=== PATIENT | male | born 1955 | race Caucasian/White ===

== ENCOUNTER → 2019-07-11 13:32 | Outpatient (CLI) | payer OTHER, SELFPAY ==
--- NOTE | 2019-07-11 09:00 | MASS_PTH ---
PATIENT: KEKE TRIPLETT LOC: [facility] U#:[id number] AGE/SX: 70/M ROOM: RE07/11/[address]: Dr. Archie Doll MD : [id number] BED: DIS: SPEC #: [id number] RECD: 07/11/19 11:32 STATUS: RUPERTO JUSTIN #: [id number] SHIMA: 07/11/19 09:[address]: Archie Doll DEPT: SURGICAL PATHOLOGY RECD BY: Jerome Gaitan ENTERED: 07/11/19 13:42 SP TYPE: Mass OTHR DR: Dr. Fausto Garcia MD Tissues: Abdomen, NOS Procedures: Surgery Specimen Level III HEADER OPERATION: Excision right abdomen mass PRE-OP DIAGNOSIS: Right abdomen mass TISSUE SUBMITTED: Right abdomen tissue MICROSCOPIC DIAGNOSIS Right abdominal tissue, biopsy: Mature adipose tissue consistent with lipoma. SJ:rao 07/12/19 MICROSCOPIC DESCRIPTION Slides are reviewed. GROSS DESCRIPTION Received in fixative is one container labeled with the patient's name and designated right abdomen. The specimen consists of a piece of adipose tissue with needle localization measuring 2.5 x 2 x 0.5 cm. The specimen is bisected and submitted entirely in one cassette. / SJ:rao 07/11/19 TC:5 CPT: 37273
[2019-07-11 09:11] VITALS: BMI 28.0
== END ==
PROVIDERS: Family Provider Family Medicine; PCP Family Medicine; Visit Provider Surgery
DX: R19.00 Intra-abdominal and pelvic swelling, mass and lump, unspecified site (principal)
CPT/HCPCS: 88304; 88305

== ENCOUNTER → 2019-09-20 09:35 | Outpatient (CLI) | payer OTHER, SELFPAY ==
[2019-09-20 09:18] VITALS: BMI 28.0
--- NOTE | 2019-09-20 09:35 | RAD_ITS ---
STUDY: X-RAY - RIGHT ANKLE REASON FOR EXAM: Male, 64 years old. Fall on ice 3 days ago. Lateral pain. TECHNIQUE: view(s) of the ankle. COMPARISON: None. FINDINGS: Normal visualized distal tibia and fibula. Separate ossification center for the lateral malleolus. Normal tibiotalar articulation and ankle mortise. Os trigonum, a normal variant. Normal visualized talus and calcaneus. The visualized subtalar, talonavicular, calcaneocuboid and tarsal articulations are normal. Lateral soft tissue swelling. RAD/Ankle min 3 Views IMPRESSION: Lateral soft tissue swelling with no acute osseous abnormality. Electronically Signed: Fausto Valdez MD at 10:19 EST , Service support ,
== END ==
PROVIDERS: Family Provider Family Medicine; PCP Family Medicine; Referring Provider Physician Assistant; Visit Provider Physician Assistant
DX: S99.911A Unspecified injury of right ankle, initial encounter (principal)
CPT/HCPCS: 73610

== ENCOUNTER 2019-11-13 09:00 | Outpatient (RCR) | payer OTHER, SELFPAY ==
[2019-09-20 09:56] VITALS: BMI 28.0
--- NOTE | 2019-11-19 07:23 | HP.PTEVAL_ITS ---
Patient's Visit Information KEKE TRIPLETT is a 64 year old M referred to Physical Therapy by Fausto Ferris MD with a diagnosis of R ankle pain. Date of Evaluation: 10/30/19 Physical Therapist: Sherman Canales DPT - Visit Plan Frequency: 1x/Week Duration: 4-6 Weeks Plan: Start with ankle stability exercises, eccentric EVR with bands, DFM to post tib tendon and US to same region. - Subjective Findings: Pt. is here today for his initial evaluation with diagnosis of R ankle sprain/pain. Pt. reprots a few weeks ago, slipping and falling on ice and his spouse falling on top of hip. Pt. reports overall is doing better, but is worried about running as this still causes him pain an swelling. 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 Pt. denies NT, negative homans sign. Pt. reports increased pain with walking prolonged distances and running. No pain at rest and house hold distances cause no pain. Pt. has tried ice and heat, no success. Pt. has worn a light neoprene brace with mild success. Pt. reports pain at lateral aspect of pain. Pt. is hopeful to reduce symptoms in order to get back to all recreational activities without limiations. - Pain R ankle Pain Intensity (Out of 10): 2 Pain Intensity Range: 1, 5 - Objective POSTURE: Pt. has normal posture in stance. No off loading noted. PALPATION: Pt. is tender at lateral maleolus and Post tib tendon, slight pain at CF ligament as well. NEURO: normal intact. ROM: Pt. has good ROM except R ankle INV causes lateral ankle pain and active EVR causes pain in similar region. MMT: 5/5 throughout, except DF 5-/5, EVR 5-/5 with increased pain with both movements. GAIT: Pt. has fairly normal gait pattern without reports of increased pain. ST AIRS: mild increase in symptoms with descending. - Goals Goal 1:: LTG: Pt. to be I with HEP. Goal Time Frame: 4-6 Weeks Goal 2:: STG: pt. to have no pain with walking community level distances. Goal Time Frame: 2 Weeks Goal 3:: LTG: Pt. to run unlimited distances without increase in edema or pain. Goal Time Frame: 4-6 Weeks Goal 4:: LTG: Pt. to have 5/5 strength throughout R ankle. Goal Time Frame: 2-4 Weeks Goal 5:: LTG: Pt. to complete referreing lacross game without increase in symptoms. Goal Time Frame: 4-6 Weeks - Rehabilitation Potential Physical Therapy Diagnosis: Pt. has signs and symptoms consistent with Post tib tendonitis. Pt. has some pain at CF ligament as well. No signs of tears noted. Pt. would benefit from PT to increase pain free ROM, promote increase lateral ankle strength and stability allowing for increased ease withrunning and recreational activities. Rehabilitation Potential: Excellent - Anticipated Interventions Patient/Client Instruction: Educate patient on: Condition, Plan of Care, Risk Factors, Benefits of Fitness Program For the Purpose of:: To improve decision making, To facilitate caregiver knowledge, To improve self management, To prevent re-injury, To improve ability to perform tasks related to life management, To improve tolerance to ADL's Therapeutic Exercise to Include: Strength training, Power training, Endurance training, Balance training, Postural training, Flexibilty training, Gait and locomotor training, Passive ROM, Active ROM For the Purpose of:: To decrease pain, To decrease swelling/inflammation, To increase ROM, To improve nutrient delivery to tissue, To increase oxygenation perfusion, To improve muscle performance and motor function, To improve gait and locomotor functions, To improve health of tissue, To decrease soft tissue restriction, To increase flexibility/ROM, To improve endurance, To improve balance Manual Therapy Techniques to Include: Other Comment: deep friction massage For the Purpose of:: To decrease pain, To decrease swelling/inflammation Ultrasound (thermal/non thermal): Yes For the Purpose of:: To decrease pain, To decrease swelling/inflammation Thank you for the opportunity to evaluate your patient. For Medicare and Medicare HMO plans, please review the plan of care and approve it. It will need to be FAXED BACK to us at [phone] for Medicare purposes. For Medicare only, by signing this I certify the plan of care. Please let me know if there are questions or concerns regarding this plan of care. Physician Signature: Date:___
--- NOTE | 2019-11-19 07:30 | HP.PTREVAL ---
Fausto Ferris MD, It has been my pleasure to treat KEKE TRIPLETT over the last 3 visits for R ankle pain. Please see the progress note below for an update on the physical therapy plan of care! 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 Pt. reports being 95% better overall. Pt. is HEP compliant. Objective/Function: Pt. to continue with exercises on own. Pt. is doing well. Pt. to trial on own for 2 weeks. Follow up with PT if needed. If I do not hear from him 1 month I will DC. Plan Plan: Start with ankle stability exercises, eccentric EVR with bands, DFM to post tib tendon and US to same region. Goals Goal 1:: LTG: Pt. to be I with HEP. Goal Time Frame: 4-6 Weeks Goal 2:: STG: pt. to have no pain with walking community level distances. Goal Time Frame: 2 Weeks Goal 3:: LTG: Pt. to run unlimited distances without increase in edema or pain. Goal Time Frame: 4-6 Weeks Goal 4:: LTG: Pt. to have 5/5 strength throughout R ankle. Goal Time Frame: 2-4 Weeks Goal 5:: LTG: Pt. to complete referreing lacross game without increase in symptoms. Goal Time Frame: 4-6 Weeks Anticipated Interventions Patient/Client Instruction: Educate patient on: Condition, Plan of Care, Risk Factors, Benefits of Fitness Program For the Purpose of:: To improve decision making, To facilitate caregiver knowledge, To improve self management, To prevent re-injury, To improve ability to perform tasks related to life management, To improve tolerance to ADL's Therapeutic Exercise to Include: Strength training, Power training, Endurance training, Balance training, Postural training, Flexibilty training, Gait and locomotor training, Passive ROM, Active ROM For the Purpose of:: To decrease pain, To decrease swelling/inflammation, To increase ROM, To improve nutrient delivery to tissue, To increase oxygenation perfusion, To improve muscle performance and motor function, To improve gait and locomotor functions, To improve health of tissue, To decrease soft tissue restriction, To increase flexibility/ROM, To improve endurance, To improve balance Manual Therapy Techniques to Include: Other Comment: deep friction massage For the Purpose of:: To decrease pain, To decrease swelling/inflammation Ultrasound (thermal/non thermal): Yes For the Purpose of:: To decrease pain, To decrease swelling/inflammation Please do not hesitate to contact me at [phone] by phone or if you have questions or concerns regarding this new plan of care! Sincerely, LAI BanuelosT
--- NOTE | 2020-04-24 07:10 | HP.PT.NRP ---
KEKE TRIPLETT was seen in my office for initial evaluation on 10/30/19. The following Plan of Care was established for this patient: Initial Frequency: 1x/Week Initial Duration: 4-6 Weeks Patient/Client Instruction: Educate patient on: Condition, Plan of Care, Risk Factors, Benefits of Fitness Program For the Purpose of:: To improve decision making, To facilitate caregiver knowledge, To improve self management, To prevent re-injury, To improve ability to perform tasks related to life management, To improve tolerance to ADL's Therapeutic Exercise to Include: Strength training, Power training, Endurance training, Balance training, Postural training, Flexibilty training, Gait and locomotor training, Passive ROM, Active ROM For the Purpose of:: To decrease pain, To decrease swelling/inflammation, To increase ROM, To improve nutrient delivery to tissue, To increase oxygenation perfusion, To improve muscle performance and motor function, To improve gait and locomotor functions, To improve health of tissue, To decrease soft tissue restriction, To increase flexibility/ROM, To improve endurance, To improve balance Manual Therapy Techniques to Include: Other Comment: deep friction massage For the Purpose of:: To decrease pain, To decrease swelling/inflammation Ultrasound (thermal/non thermal): Yes For the Purpose of:: To decrease pain, To decrease swelling/inflammation This patient was last seen in our office 11/13/19. Pertinent comments regarding their Physical therapy will appear below: Pt. was seen for his bridget sprain. Pt. was doing very well at our last appointment. Pt. has not been seen in several months and will be DC from PT at this point in time. At this point I will be discontinuing this patient from physical therapy. I would be happy to see this patient again in the future if found appropriate by the physician. Thank you! Sherman Canales, LAIT
== END 2019-11-13 19:00 | disposition home or self-care (01) ==
LOC: PT 09:00
PROVIDERS: PCP Family Medicine; Referring Provider Family Medicine; Visit Provider Family Medicine
DX: M25.571 Pain in right ankle and joints of right foot (principal)
CPT/HCPCS: 97035; 97110; 97161

== ENCOUNTER → 2020-02-26 13:59 | Outpatient (CLI) | payer OTHER, SELFPAY ==
[2020-02-26 13:56] VITALS: BMI 28.0
--- NOTE | 2020-02-26 14:00 | RAD_ITS ---
STUDY: X-RAY - RIGHT SHOULDER REASON FOR EXAM: Chronic shoulder pain. TECHNIQUE: 3 view(s) of the shoulder. COMPARISON: None. FINDINGS: Normal glenohumeral articulation. There is acromioclavicular arthrosis. Normal acromion. Normal humeral head and visualized proximal humerus. The soft tissue structures are unremarkable. Normal visualized pulmonary apex. RAD/Shoulder min 2 Views IMPRESSION: Acromioclavicular arthrosis. Electronically Signed: Marvin Romero MD at 15:02 EDT Tel , Service support ,
== END ==
PROVIDERS: PCP Family Medicine; Referring Provider Orthopaedic Surgery; Visit Provider Orthopaedic Surgery
DX: M25.511 Pain in right shoulder (principal)
CPT/HCPCS: 73030

== ENCOUNTER → 2020-03-06 10:20 | Outpatient (CLI) | payer OTHER, SELFPAY ==
[2020-02-26 13:56] VITALS: BMI 28.0
--- NOTE | 2020-03-06 10:21 | MRI_ITS ---
STUDY: MRI RIGHT SHOULDER REASON FOR EXAM: Right shoulder pain and loss of strength for 6 months. TECHNIQUE: Standardized fat and water weighted pulse sequences were obtained in all 3 orthogonal planes. COMPARISON: Radiographs 02/26/2020. FINDINGS: There is a small high-grade partial thickness tear of the articular surface of the distal anterior supraspinatus tendon at the greater tuberosity insertion (T2 coronal image 16) measuring 0.2 cm in length with delamination (T2 coronal images 11-15, 17). Normal infraspinatus tendon. Normal subscapularis tendon. Normal teres minor tendon. Normal supraspinatus muscle. Normal infraspinatus muscle. Normal subscapularis muscle. There is atrophy with partial fat replacement of the teres minor muscle (T2 sagittal image 13). Normal glenohumeral articulation. There are small foci of bone edema in the greater tuberosity and medial humeral head. Normal biceps labral complex. Normal intracapsular long biceps tendon. Normal labrum. Normal capsulo- ligamentous complex. There is acromioclavicular arthrosis with mild hypertrophic changes effacing the subacromial fat (T2 sagittal images 17, 18). There is a Type II morphology (curved), with a neutral orientation. There is a very small volume of subacromial-subdeltoid bursal fluid (T2 coronal images 12-14). Normal visualized coracohumeral and coracoacromial ligaments. Normal deltoid muscle. Normal trapezius muscle. MRI/Upper Ext Joint Only(Routine) IMPRESSION: Small partial-thickness tear of the supraspinatus tendon with delamination. Atrophy of the teres minor muscle. Acromioclavicular arthrosis. Very mild subacromial-subdeltoid bursitis. Electronically Signed: Marvin Romero MD at 11:48 EDT Tel , Service support ,
== END ==
PROVIDERS: PCP Family Medicine; Referring Provider Orthopaedic Surgery; Visit Provider Orthopaedic Surgery
DX: S46.011A Strain of muscle(s) and tendon(s) of the rotator cuff of right shoulder, initial encounter (principal); M19.011 Primary osteoarthritis, right shoulder
CPT/HCPCS: 73221

== ENCOUNTER 2020-06-25 06:02 | Day surgery (SDC) | payer OTHER, SELFPAY ==
[2020-05-06 13:03] VITALS: BMI 28.0
--- NOTE | 2020-05-28 09:43 | EKG12_ITS ---
Test Reason : PRE OP Blood Pressure : / mmHG Vent. Rate : 072 BPM Atrial Rate : 072 BPM P-R Int : 134 ms QRS Dur : 080 ms QT Int : 374 ms P-R-T Axes : 041 001 026 degrees QTc Int : 409 ms Normal sinus rhythm Normal ECG Confirmed by MAURICIO SOUSA, DARIUS ([id number]), assistant film editor BRENDAN FENG ([id number]) on 05/30/2020 1:30:06 PM Referred By: Donna Contreras Confirmed By:MARSHALL MARTÍNEZ MD
[2020-05-28 10:25] LABS: Hematocrit 47.6 % (40-54); Hemoglobin 15.9 g/dL (13.0-16.5); Mean Corp Hgb Conc 33.4 g/dL (32-36); Mean Corpuscular Hgb 31.1 pg (27.0-32.0); Mean Platelet Vol. 9.2 fl (6.2-12.0); Platelet Count 316 K/mm3 (150-450); RBC Distribution Width CV 13.2 % (11.6-14.6); RBC Distribution Width SD 44.7 fl (35.1-43.9); Red Blood Count 5.12 M/mm3 (4.6-6.2); White Blood Count 7.1 K/mm3 (4.4-11.0)
--- NOTE | 2020-06-04 07:10 | HP_ITS ---
I have re-examined the patient. There are no clinical changes since date of exam. Intake Intake Visit Reasons: RIGHT SHOULDER Chief Complaint: right shoulder Accompanied by: self Is patient in pain?: Yes Allergies No Known Allergies Allergy (Verified 09/20/19 09:19) Medications pantoprazole 40 mg tablet,delayed release PO 02/26/20 [History Confirmed 05/06/20] PFSH Social History (Updated 05/06/20 @ 15:[address] Donna Contreras DO) Smoking Status: Never smoker alcohol intake: never substance use type: does not use HPI RIGHT SHOULDER: Surgical H&P: Yes Details: Parts of this documentation were recorded by a scribe, this documentation accurately reflects the service provided and the decisions made by me, Dr. Donna Contreras DO 05/06/20 1300. KEKE TRIPLETT is a 64 year old M here today for f/u rt shoulder. Patient states that he is here to sign a surgery consent form. Patient continues to have pain and difficulty with normal activities and desired activities like golfing. Denies numbness, tingling or other associated symptoms. He continues to have achiness over his anterior lateral arm. ROS Musc Reports as per HPI, Reports joint pain Skin/Breast Reports as per HPI Neuro Yes as per HPI Ortho Exam Right Shoulder Skin/Wound: No ecchymosis, No erythema, No swelling Testing: Positive Hawkin's, Neer's, Speed's, TTP Biceps, AROM-Forward Elevation 0-180, AROM-External Rotation at 90 0-60 and AROM-External Rotation at side 0- 60; negative Apprehension Test or Sulcus Sign Assessment & Plan Problems 1. Traumatic incomplete tear of right rotator cuff, subsequent encounter S46.011D 2. Biceps tendonitis on right M75.21 3. Subacromial impingement of right shoulder M75.41 4. Bursitis of right shoulder M75.51 Plan Patient educated that since he continues to have pain and the injections have become less effective then he can proceed with surgery. Patient wishes to proceed with surgery on 06/04/2020. Reviewed the pre-operative plans with the patient. Risks and benefits of the procedure were fully explained, including but not limited to infection, neurovascular injury, continued pain, arthritis, stiffness, need for further surgery, re-injury, DVT, PE, general risks of anesthesia, and loss of limb or life. The patient understands all the risks and does wish to proceed with written consent for right shoulder arthroscopy RTC repair, biceps tenotomy vs tenodesis, subacromial decompression, acromioplasty, repair as indicated. Patient prefers to have the tenodesis along with the RTC repair. Follow up 5 days post op or sooner if pain, swelling, numbness or associated symptoms, or concerns develop. All questions answered. Patient in agreement of plan. We discussed the current risk associated COVID-19. While it is understood that there is a community spread of COVID 19 the risk of nicole COVID-19 while at [facility] is very low, however, the risk cannot be completely mitigated because of the community spread of the disease. We discussed in detail the risk of exposure to and or potential harm posed by the COVID-19 virus with having a surgery/procedure at this time versus the risk of delaying the surgery/procedure. Is not possible to know either the risk of delaying the surgery procedure or chance of getting an infection with perfect accuracy, but a joint decision was made to proceed at this time with a schedule surgery/procedure as indicated on the consent form. Patient was notified that we will need to comply with any screening or testing [facility] wishes to perform or that surgery may be delayed for any positive results. Coding Level of Care Code Off vis,est,level 4 Diagnoses Traumatic incomplete tear of right rotator cuff, subsequent encounter S46.011D ??Encounter type: subsequent encounter ??Rotator cuff tear extent: incomplete ??Rotator cuff tear trauma status: traumatic Biceps tendonitis on right M75.21 Subacromial impingement of right shoulder M75.41 Bursitis of right shoulder M75.51 COVID (Procedure Consent) Procedure Criteria Procedure Criteria: Yes Elective The surgeon/proceduralist and patient have discussed in detail the risk of exposure to and/or potential harm posed by the COVID-19 virus with having a surgery/procedure at this time versus the risk of? delaying the surgery/procedure. It is not possible to know either the risk of delaying the surgery or procedure or chance of getting an infection with perfect accuracy, but a joint decision was made between the patient and the surgeon/proceduralist ?to proceed at this time with the scheduled surgery/procedure as indicated on the consent form.
[2020-06-17 13:10] VITALS: BMI 28.0
[2020-06-25] VITALS (7 sets, daily range): BP systolic 104–141; BP diastolic 64–80; PULSE 67–87; RESP 16; TEMP 36–36.5; O2SAT 92–94; BMI 27.6
[2020-06-25] MEDS: Lactated Ringers 1,000 ML 100 ML IV ×2 (06:34→09:01)
--- NOTE | 2020-06-25 07:13 | PCM.DC.ORTHO ---
Discharge Diet: No Restrictions - may remove sling to range shoulder, do not actively range elbow, remove bandages and apply bandaids to incision sites after pod5, may get incision wet after pod 5 , follow up in 5 days, call with concerns Discharge Activity: May Not Drive May shower in (days): 1 Ice area for (Minutes): 20 - Every hour while awake. Weight Bearing Status: Weight bearing as tolerated Keep extremity elevated above heart level: Operative Extremity Call your doctor if your incision/area has: Continuous Slow Oozing, Sudden Increased Bleeding, Increased Pain/ Swelling, Increased Redness, Foul Smelling Discharge Call your doctor if you observe: Fever of 101 or Higher, Coldness, Increased Pain, Numbness or Tingling, Change in Color, Calf discomfort Allergies/Adverse Reactions: Allergies No Known Allergies Allergy (Verified 06/17/20 13:06) Medications to take at Discharge pantoprazole 40 mg tablet,delayed release 40 mg PO DAILY 02/26/20 Fexofenadine HCl [Irena Allergy] 60 mg PO DAILY 05/27/20 meloxicam 15 mg tablet 15 mg PO DAILY #30 tab 06/04/20 Hydrocodone Bitart/Apap 5-325 [Cameron 5MG-325MG] 1 - 2 tab PO Q6H PRN PRN 5 Days #40 tab 06/25/20 Zolpidem Tartrate [Ambien (Generic)] 5 mg PO QHS PRN PRN #14 tab 06/25/20 The following prescriptions were given: Zolpidem Tartrate [Ambien (Generic)] 5 mg PO QHS PRN PRN #14 tab PRN Reason: Insomnia Transmission Status: Received by [facility] Hydrocodone Bitart/Apap 5-325 [Cameron 5MG-325MG] 1 - 2 tab PO Q6H PRN PRN 5 Days #40 tab PRN Reason: Pain Transmission Status: Received by [facility] Primary Care Physician: Fausto Ferris MD [Primary Care Provider] - Test Results: Test results from this visit will be discussed in further detail at your follow-up appointment, if applicable. Please Follow Up With: Donna Contreras, DO - [phone]
--- NOTE | 2020-06-25 07:13 | PCM.OPRPT ---
Report of Operation Date of Procedure: 06/25/20 Pre-Operative Diagnosis: right shoulder rc delamination, labral fraying, biceps slap tear and tendinosis, impingment syndrome, Post-Operative Diagnosis: same Surgery/Procedure Performed:: right shoulder arthroscopy, labral and rc debridement, subacromial decompression/acromioplasty, open biceps subpec tenodesis conservation policy analyst: Rudolph Bateman Type of Anesthesia:: General/Regional Anesthesiologist: Gunnar Ugalde Estimated Blood Loss (mL): min Fluids Replaced: 900cc lr Description of Procedure: Preop note Patient is a 65-year-old male who is had continued right anterior shoulder and posterior shoulder pain. Patient failed conservative treatment including injections patient MRI shows a delamination tear of his rotator cuff with intact footprint and labral fraying as well as biceps tendinosis. On physical exam patient is tender along his biceps tendon he has positive impingement syndrome. Risk benefits alternative surgery discussed with patient. Risk including but not limited to blood loss, blood clot, infection, neurovascular, failure procedure, loss of life and loss of limb. Patient aware like proceed with right shoulder arthroscopy repair as indicated. Operative note Patient seen and examined preoperative holding area. Right shoulder was marked. Patient brought to the operating placed supine on the operating table. Signed, anesthesia, antibiotics were administered. Patient was placed in beachchair positioning with bony prominences well-padded and SCDs placed on his bilateral lower extremity. Replacement beachchair and penitentiary through we did recheck his blood pressure which was stable throughout. We then prepped and draped the right arm in standard usual sterile technique. We marked our bony landmarks as well as our portal placement. We insufflated the glenohumeral joint for the posterior aspect had good return. Timeout was performed. We then created a posterior portal with 11 blade. We will begin our diagnostic arthroscopy. There was significant labral fraying extending from the anterior to the posterior aspect of the biceps labral junction was unstable. He also had some fraying on the undersurface of the articular surface of his rotator cuff however the footprint was intact. We then created anterior portal under direct visualization. We performed a tenotomy of the biceps we then resected back any unstable labral pieces with a shaver. We then also debrided back to the onset stable labrum extending superiorly and posteriorly as well as any loose unstable on rotator cuff on the articular surface. We moved to the subacromial space. Created a lateral portal and direct visualization. Patient had a quite a hyperemic and thickened bursa. This was resected with a combination of shaver and a burner. We performed a very gentle acromioplasty as well with a shaver. We coagulating bleeders that we did find. We then moved to our subacromial subpectoral tenodesis. We reprepped the area and waited the allotted 3 minutes. We marked our incision which was just distal to the pec insertion. We create about a 2 cm incision with a 15 blade dissect down tenotomies to level the biceps tendon the biceps tendon was then removed and truncated to appropriate length as measured based on our tenodesis marking. We then sent the biceps to pathology for further evaluation. We whipstitched the end of the biceps drilled unicortical he placed the button at the end of the whipstitch biceps tendon and then flipped the biceps tendon after drilling after the drilling and and then oversewed the tendon down to the periosteum. We then irrigated the incision with copious amounts of sterile saline. Incision was closed with 2-0 Vicryl running 4-0 Monocryl. The portals were closed with interrupted 4-0 nylon stitches. Sterile dressings were applied. Patient tolerated procedure well no complication transfer recovery room in stable condition. Patient was placed in a postop sling. Postoperative note We will give family pictures in 2 weeks Call with increased pain numbness tingling further issues arise Pharmacy has prescriptions Discussed with family Sapna disclaimer This note was generated with Proven dictation software. It may contain incorrect words, spelling, and punctuation that were not noted in checking the note before signing.
[2020-06-25] MEDS: Cefazolin 2 GM in 0.9% Normal Saline 100 ML IV (07:26)
--- NOTE | 2020-06-25 07:30 | TESH_PTH ---
PATIENT: KEKE TRIPLETT LOC: [facility] [place] U#:[id number] AGE/SX: 65/M ROOM: RE06/25/[address]: Dr. Donna Contreras DO : 1955 BED: DIS: 06/25/2020 SPEC #: [id number] RECD: 06/25/20 10:30 STATUS: RUPERTO JUSTIN #: [id number] SHIMA: 06/25/20 07:[address]: Donna Contreras DEPT: SURGICAL PATHOLOGY RECD BY: Jody Baca ENTERED: 06/25/20 11:06 SP TYPE: TENDON OTHR DR: Dr. Fausto Ferris MD Tissues: Tendon and tendon sheath, NOS Procedures: Surgery Specimen Level III HEADER OPERATION: Right shoulder arthroscopy, RTC repair, SAD/acromioplasty PRE-OP DIAGNOSIS: Traumatic incomplete tear of right rotator cuff; biceps tendonitis on right; subacromial impingement of right shoulder; bursitis of right shoulder TISSUE SUBMITTED: Bicep tendon MICROSCOPIC DIAGNOSIS Right biceps tendon, excision: Reparative and reactive change. AM:rao 06/26/20 MICROSCOPIC DESCRIPTION Slides are reviewed. GROSS DESCRIPTION Received in fixative is one container labeled with the patient's name and designated bicrachael tendon. The specimen consists of an elongated fragment of oneal-white soft tissue measuring 5.5 x 0.9 x 0.5 cm. The specimen is sectioned and totally submitted in one cassette. / AM:rao 06/25/20 TC:5 CPT: 51865
[2020-06-25] MEDS: Epinephrine (1 mg/ml) 1 MG/ML VIAL (07:57)
[2020-06-25] MEDS: Mupirocin Ointment 22gm Tube 1 APPLIC (07:57)
== END 2020-06-25 11:10 | disposition home or self-care (01) ==
LOC: SDC 06:02 → AC 06:03
PROVIDERS: Anesthesiology; PCP Family Medicine; Referring Provider Orthopaedic Surgery; Visit Provider Orthopaedic Surgery
PROC: (CPT 29827; principal; 2020-06-25 07:10)
DX: S46.011D Strain of muscle(s) and tendon(s) of the rotator cuff of right shoulder, subsequent encounter (principal); M75.21 Bicipital tendinitis, right shoulder; M75.41 Impingement syndrome of right shoulder; M75.51 Bursitis of right shoulder; M25.811 Other specified joint disorders, right shoulder
CPT/HCPCS: 01716; 23430; 29822; 29826; 64450; 36415; 85027; 87635; 88304; 93005; C9803; J7120; J2405; U0003

== ENCOUNTER → 2020-07-24 11:03 | Outpatient (CLI) | payer OTHER, SELFPAY ==
[2020-06-25 06:23] VITALS: BMI 27.6
--- NOTE | 2020-07-24 11:04 | MRI_ITS ---
STUDY: MRI LEFT KNEE REASON FOR EXAM: Left knee pain, knee hyperextends at times, history of arthroscopy. TECHNIQUE: Standardized fat and water weighted pulse sequences were obtained in all 3 orthogonal planes. COMPARISON: Radiographs 05/22/2020. FINDINGS: There is a partial medial meniscectomy with a horizontal band of signal in the posterior horn of the medial meniscus extending to the free margin and tracking fluid (T2 sagittal images 6-8) and therefore more consistent with recurrent medial meniscal tear rather than scarring. Normal medial femoral condyle and tibial plateau. Normal medial collateral ligamentous complex (MCL). Normal distal semimembranosus, gracilis and semitendinosus tendons. Normal lateral meniscus. Normal hyaline cartilage of the lateral femorotibial compartment. Normal lateral femoral condyle and tibial plateau. Normal proximal tibiofibular articulation. Normal lateral collateral (fibular) ligament. Normal popliteus tendon. Normal biceps femoris tendon. There is intrasubstance mucoid degeneration/cyst of the anterior cruciate ligament (T2 sagittal images 12, 13) without focal discontinuity of the ligament. Normal posterior cruciate ligament (PCL). Normal congruent patellofemoral articulation. Normal hyaline cartilage of the patellofemoral compartment. Normal medial and lateral patellar retinaculum. Normal visualized quadriceps tendon. Normal patellar tendon. Normal Hoffa''s fat pad. There is a very small joint effusion. The soft tissues are unremarkable. The otherwise visualized osseous structures are unremarkable. MRI/Lower Ext Joint Only (Routine) IMPRESSION: Partial medial meniscectomy with recurrent medial meniscal tear. Mild arthrosis of the medial femorotibial compartment. Intrasubstance mucoid degeneration/cyst in the anterior cruciate ligament. Very small joint effusion. Electronically Signed: Marvin Romero MD at 13:31 EST Tel , Service support ,
== END ==
PROVIDERS: PCP Family Medicine; Referring Provider Orthopaedic Surgery; Visit Provider Orthopaedic Surgery
DX: M17.12 Unilateral primary osteoarthritis, left knee (principal)
CPT/HCPCS: 73721

== ENCOUNTER 2020-08-26 09:00 | Outpatient (RCR) | payer OTHER, SELFPAY ==
[2020-06-25 06:23] VITALS: BMI 27.6
--- NOTE | 2020-07-15 14:01 | HP.PTEVAL ---
Patient's Visit Information KEKE TRIPLETT is a 65 year old M referred to Physical Therapy by Dr. Donna Contreras DO with a diagnosis of R biceps tenodesis w/ SAD. Date of Evaluation: 07/15/20 Physical Therapist: Sherman Canales DPT - Visit Plan Frequency: 1x/Week Duration: 6 Weeks Plan: R shoulder PROM progressing to AAROM over next 2 weeks. R elbow PROM for 6 weeks. Work initially on increasing RUE ROM. R shoulder strengthening beginning 2-3 weeks if s/s allow. - Subjective Pt presents for eval this date 3 weeks s/p R biceps tenodesis. Started to feel numbness in top of arm, was unable to throw a ball d/t pain. Does not currently have any pain, states he took pain medication once nerve block wore off for a day but has been fine since. 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 States that sleeping is getting better each day, is getting used to the sling. Denies having any numbness or tingling. Returns to Dr in 2-3 weeks. - Pain R shoulder Pain Intensity (Out of 10): 0 - Objective POSTURE: Pt presented in R arm sling. PALPATION: Tenderness over ant shoulder. ROM: PROM tested only. Reduced PROM. R shoulder flex 113, abd 101, ER 50, IR 38 deg w/ empty end feels d/t pain. R elbow flex 140, ext 10 deg w/ firm end feels. LUE WNL. MMT: Not tested, PROM only at this time. NEURO: WNL, denies n/t - Goals Goal 1:: LTG: Pt to be I w/ HEP. Goal Time Frame: 4-6 Weeks Goal 2:: STG: Pt will display inc RUE PROM to at least 85% of LUE. Goal Time Frame: 2-4 Weeks Goal 3:: LTG: Pt will display inc RUE PROM equal to LUE. Goal Time Frame: 4-6 Weeks Goal 4:: LTG: Pt will report having 0-2/10 pain at end range of R shoulder movements. Goal Time Frame: 4-6 Weeks Goal 5:: LTG: Pt. to have full AROM of R shoulder without increase in symptoms. Goal Time Frame: 4-6 Weeks Goal 6:: LTG: Pt. to have increased LUE strength to atleast 4+/5 throughout. Goal Time Frame: 6-8 Weeks - Rehabilitation Potential Physical Therapy Diagnosis: S/s consistent w/ s/p R biceps tenodesis. Pt displays dec RUE ROM and strength w/ pain at end range of PROM. PT intervention indicated to address stated deficits and inc RUE ROM, strength, and facilitate a dec in pain at end range. Rehabilitation Potential: Good - Anticipated Interventions Patient/Client Instruction: Educate patient on: Condition, Plan of Care, Risk Factors, Benefits of Fitness Program For the Purpose of:: To foster healthy habits, To improve self management, To prevent re-injury Therapeutic Exercise to Include: Strength training, Power training, Flexibilty training, Passive ROM, Active ROM For the Purpose of:: To increase ROM, To improve muscle performance and motor function, To improve ability to perform ADL's, To increase tolerance to activity/condition/position, To improve ability of physical actions for home/community/work/leisure, To increase flexibility/ROM Manual Therapy Techniques to Include: Passive ROM For the Purpose of:: To increase ROM, To improve ability to perform ADL's, To increase flexibility/ROM TENS: Yes Cryotherapy (ice pack, ice massage): Yes Thermo therapy (hot pack): Yes Ultrasound (thermal/non thermal): Yes Thank you for the opportunity to evaluate your patient. For Medicare and Medicare HMO plans, please review the plan of care and approve it. It will need to be FAXED BACK to us at [phone] for Medicare purposes. For Medicare only, by signing this I certify the plan of care. Please let me know if there are questions or concerns regarding this plan of care. Physician Signature: Date:
--- NOTE | 2020-08-26 10:55 | HP.PTREVAL_ITS ---
Dr. Donna Contreras, DO, It has been my pleasure to treat KEKE TRIPLETT over the last 7 visits for R biceps tenodesis w/ SAD. Please see the progress note below for an update on the physical therapy plan of care! Subjective: Pt. reports 'I am doing great today. He had an injection in his knee and feel like his arm is doing better. Pt. reports no pain currently. Objective/Function: Pt. is doing very well. He has full motion of his shoulder and contiunes to progress strenth he has 4/5 throughout without increase in s ymptoms. Pt. is pleased overall. Plan Plan: Pt. to trial on his own for a few weeks to see if he can manage on his own. Pt. to follow up with Pt if needed. If he is not seen in 4-6 weeks I will DC him back to physician. Goals Goal 1:: LTG: Pt to be I w/ HEP. Goal Time Frame: 4-6 Weeks Goal Progress: Goal Met Goal 2:: STG: Pt will display inc RUE PROM to at least 85% of LUE. Goal Time Frame: 2-4 Weeks Goal Progress: Goal Met Goal 3:: LTG: Pt will display inc RUE PROM equal to LUE. Goal Time Frame: 4-6 Weeks Goal Progress: Goal Met Goal 4:: LTG: Pt will report having 0-2/10 pain at end range of R shoulder movements. Goal Time Frame: 4-6 Weeks Goal Progress: Goal Met Goal 5:: LTG: Pt. to have full AROM of R shoulder without increase in symptoms. Goal Time Frame: 4-6 Weeks Goal Progress: Goal Met Goal 6:: LTG: Pt. to have increased LUE strength to atleast 4+/5 throughout. Goal Time Frame: 6-8 Weeks Goal Progress: Progressing Anticipated Interventions Patient/Client Instruction: Educate patient on: Condition, Plan of Care, Risk Factors, Benefits of Fitness Program For the Purpose of:: To foster healthy habits, To improve self management, To prevent re-injury Therapeutic Exercise to Include: Strength training, Power training, Flexibilty training, Passive ROM, Active ROM For the Purpose of:: To increase ROM, To improve muscle performance and motor function, To improve ability to perform ADL's, To increase tolerance to activity/condition/position, To improve ability of physical actions for home/community/work/leisure, To increase flexibility/ROM Manual Therapy Techniques to Include: Passive ROM For the Purpose of:: To increase ROM, To improve ability to perform ADL's, To increase flexibility/ROM TENS: Yes Cryotherapy (ice pack, ice massage): Yes Thermo therapy (hot pack): Yes Ultrasound (thermal/non thermal): Yes Please do not hesitate to contact me at [phone] by phone or if you have questions or concerns regarding this new plan of care! Sincerely, Sherman Canales, LAIT
== END 2020-08-26 19:00 | disposition home or self-care (01) ==
LOC: PT 09:00
PROVIDERS: PCP Family Medicine; Referring Provider Orthopaedic Surgery; Visit Provider Orthopaedic Surgery
DX: Z98.890 Other specified postprocedural states (principal)
CPT/HCPCS: 97110; 97161

== ENCOUNTER 2021-02-04 13:30 | Outpatient (RCR) | payer OTHER, SELFPAY ==
--- NOTE | 2021-01-14 13:04 | HP.PTEVAL ---
Patient's Visit Information KEKE TRIPLETT is a 65 year old M referred to Physical Therapy by HEATH Merritt with a diagnosis of L knee bakers cyst, L knee OA. Date of Evaluation: 01/14/21 Physical Therapist: Sherman Canales DPT - Visit Plan Frequency: 3x /Week Duration: 4 Weeks Plan: Start with L knee extension ROM. Add in HS strengtherning, ppsterior chain strengthening. He is also having some R shoulder tightness from previous bicep tenodesis which I will give some exercise to progress independently. - Subjective Pt. is here today for his initial evaluation with diagnossi of bakers cyst and OA of L knee. Pt. reports that his knee started bothering him about 6 months ago. He did have an injection in Dec with good releif and then another one last week which again gove good relief, but is already starting to come back. Pt. denies N/T in either LE. Pt. 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 Pt. reports increased swelling at the back of his knee at times which is causing increased pain. Pt. is hopeful to keep referreeing without pain. He reports that his knee does not give out on him. Pt. is having pain with walking, jogging, running, squating and stairs. Worse after prolonged activities. Iciung has helped. NO other past medical history for his L knee, but did have partial R knee replacement and R biceps tenodesis. - Pain L lateral knee Pain Intensity (Out of 10): 3 Pain Intensity Range: 1, 6 - Objective POSTURE: pt. has good posture in stance. Pt. has normal wt.s hift between bilateral LEs. Normal knee postioning. PALPATION: pt. ahs tenderness at posteior lateral popliteal fossa. Pt. has slight lateral HS pain. He does complain of anterior lateral tibial platea pain at time.s. NEURO: normal sensation and normal DTR of BLEs. ROM: R knee 0-0-128deg. L knee 0-3-121deg. Normal B hip ROM. MMT: Pt. has 5/5 strength througout BLes, except 4+/5 L HS and 4+/5 bilat hip extension. GAIT: Pt. has normal gait pattern without increase in symptoms. - Special Tests L Knee Beny - Meniscus: Negative L Knee Anterior Drawer - ACL: Negative L Knee Posterior Drawer - PCL: Negative L Knee Valgus - MCL: Negative L Knee Varus - LCL: Negative - Goals Goal 1:: LTG: Pt. to be I with HEP. Goal Time Frame: 4-6 Weeks Goal 2:: STG: Pt. to hae full knee extenion on L knee withotu increase in symptoms. Goal Time Frame: 2-4 Weeks Goal 3:: LTG: Pt. to have increased LLE strength increase to 5/5 throughout. 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 to resume running without increase in latent swelling/pain. Goal Time Frame: 4-6 Weeks Goal 5:: LTG: Pt. to resume all recreational activities without increase in symptoms. Goal Time Frame: 4-6 Weeks - Rehabilitation Potential Physical Therapy Diagnosis: Pt. has signs and symptoms consistent with L knee bakers cyst and L knee OA. Pt. has subsequent lack of TKE, slgiht posterior chain weakness and increased difficulty with completing recreational running. Pt. would benefit from PT to address the above limitations progress back to all recreational activities without limitaitons. Rehabilitation Potential: Excellent - Anticipated Interventions Patient/Client Instruction: Educate patient on: Condition, Plan of Care, Risk Factors, Benefits of Fitness Program For the Purpose of:: To facilitate caregiver knowledge, To improve self management, To prevent re-injury, To improve ability to perform tasks related to life management, To improve tolerance to ADL's Therapeutic Exercise to Include: Strength training, Power training, Endurance training, Postural training, Flexibilty training, Passive ROM, Active ROM, Scapular Strength/Stabilization For the Purpose of:: To decrease pain, To decrease swelling/inflammation, To increase ROM, To improve nutrient delivery to tissue, To increase oxygenation perfusion, To improve muscle performance and motor function, To improve ability to perform ADL's, To increase tolerance to activity/condition/position, To improve health of tissue, To decrease soft tissue restriction, To increase flexibility/ROM Manual Therapy Techniques to Include: Mobilization, Passive ROM For the Purpose of:: To decrease pain, To decrease swelling/inflammation, To increase ROM, To improve nutrient delivery to tissue Cryotherapy (ice pack, ice massage): Yes Vasopneumatic device: Yes For the Purpose of:: To decrease pain, To decrease swelling/inflammation, To increase ROM Thank you for the opportunity to evaluate your patient. For Medicare and Medicare HMO plans, please review the plan of care and approve it. It will need to be FAXED BACK to us at [phone] for Medicare purposes. For Medicare only, by signing this I certify the plan of care. Please let me know if there are questions or concerns regarding this plan of care. Physician Signature: Date:
--- NOTE | 2021-02-20 13:54 | HP.PTDCSUM ---
It has been my pleasure to treat KEKE TRIPLETT referred by HEATH Merritt, with the diagnosis of L knee bakers cyst, L knee OA for a total of 9 visit(s). Discharge Date: 02/04/21 Please see the following information for a summary of their discharge status. Subjective: Pt. reports overall doing well. 90% better overall. He is back to running during his games without issues. HEP compliant. L lateral knee Pain Intensity (Out of 10): 0 % Improvement: 90 Objective/Function: Pt. did well with PT today. No issues noted. Overall good progress noted. Pt. reports no issues. We talked about no longer needing PT as he is doing very well. he is back to all activities without limitations. Pt. reports no longer having pain. He has full 5/5 strength throughout. Pt. pleased. Goal 1:: LTG: Pt. to be I with HEP. Goal Progress: Goal Met Goal 2:: STG: Pt. to hae full knee extenion on L knee withotu increase in symptoms. Goal Progress: Goal Met Goal 3:: LTG: Pt. to have increased LLE strength increase to 5/5 throughout. Goal Progress: Goal Met Goal 4:: LTG: Pt. to resume running without increase in latent swelling/pain. Goal Progress: Goal Met Goal 5:: LTG: Pt. to resume all recreational activities without increase in symptoms. Goal Progress: Goal Met Plan: Pt. has met all goals and is no longer having any issues. He will be DC from PT at this point in time. Discharge Comments: Pt. will be DC from PT this date. He is doing very well and is back to all activities without limitations. He had full strength, minimal swelling and is tolerating running well. Pt. to follow up with physician if needed. If there are questions or concerns regarding this patient's physical therapy, please feel free to call me at [phone]. Thank you for the referral of this patient. Sincerely, Sherman Canales DPT
== END 2021-02-04 19:00 | disposition home or self-care (01) ==
LOC: PT 13:30
PROVIDERS: PCP Family Medicine; Referring Provider Physician Assistant; Visit Provider Physician Assistant
DX: M71.22 Synovial cyst of popliteal space [Baker], left knee (principal)
CPT/HCPCS: 97110; 97161

== ENCOUNTER → 2021-06-30 10:10 | Outpatient (CLI) | payer MEDICARE, OTHER, SELFPAY ==
--- NOTE | 2021-06-30 10:17 | RAD_ITS ---
INDICATION: PAIN EXAMINATION/TECHNIQUE: X-RAY - XR Spine Cervical 4 or 5 Views COMPARISON: None. FINDINGS: Normal lordotic curvature. Normal alignment. There is no fracture or focal osseous lesion. C5-6 and C6-7 degenerative disc and endplate changes with mild uncovertebral joint arthropathy, right greater than left and mild facet arthropathy bilaterally. There appears to be minimal right neural foraminal narrowing from uncovertebral joint arthropathy at C6-7 on the right. No prevertebral soft tissue swelling. Lung apices included in [id number] are normal. RAD/Cerv Spine 4 or 5 Views IMPRESSION: Degenerative changes as above. No malalignment, fracture or focal osseous lesion. Electronically Signed: Wilbur Samuel DO at 23:33 EDT Tel , Service support ,
== END ==
PROVIDERS: PCP Family Medicine; Referring Provider Family Medicine; Visit Provider Family Medicine
DX: M54.12 Radiculopathy, cervical region (principal)
CPT/HCPCS: 72050

== ENCOUNTER 2021-08-19 08:00 | Outpatient (RCR) | payer MEDICARE, OTHER, SELFPAY ==
--- NOTE | 2021-07-02 11:15 | HP.PTEVAL_ITS ---
Patient's Visit Information KEKE TRIPLETT is a 66 year old M referred to Physical Therapy by Dr. Matheus Hawkins MD with a diagnosis of NECK ARTHRITIS AND RIGHT UE RADICULOPATHY. Date of Evaluation: 07/02/21 Physical Therapist: Eliana Armstrong PT, Cert MDT - Visit Plan Frequency: 2-3x /Week Duration: 4-6 Weeks Plan: CERVICAL US X 6 VISITS. POSTURE CORRECTION/STRENGTHENING, INSTRUCTION IN APPROPRIATE BODY MECHANICS AND ACTIVITY MODIFICATIONS. RUBI UE ROM, STRETCHING AND STRENGTHENING. HEP INSTRUCTION INCLUDING THE FOLLOWING TOLERATED AND WITHOUT PERIPHERALIZING SX'S: REP RET IN SITTING. REP RET IN LYING. SCAP SQUEEZES. DEEP NECK FLEXOR LIFT. PRONE W'S. UE WALL SLIDES. PRONE ROWS. UE TBAND WALL WALKS. ANTERIOR/MIDDLE SCALENE STRETCH. UPPER TRAP STRETCH. LEVATOR SCAPULAE STRETCH. 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 CURRNTLY IN SEASON. Present symptoms: PAIN DOWN RIGHT SHLD DOWN ARM TO THUMB AND PALM OF HAND. NO NECK PAIN. RIGHT DORSUM OF HAND INTERMITTENT NUMBNESS. ALSO HAS TINGLING DOWN RIGHT UE. Present since: ABOUT 4 WEEKS AGO. Pain Scale: Worst - 4/10 Least - 0/10. Currently: 09/28. Commenced as a result of: NO APPARENT REASON. STARTED AT WORK. Symptoms at onset: RIGHT ELBOW AREA TINGLING. 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 EVEN LYING ON R SIDE CAN CAUSE IT. SHAVING CAUSES ARM TO GO NUMB. Better: CHANGE OF POSITION. Disturbed sleep: YES. Previous history/Previous treatment: PATIENT DENIES HISTORY OF NECK PROBLEMS. RIGHT SHLD SURGERY BY DR. WALKER LAST YEAR FOR BURSITIS AND TRIED TO RE- ATTACH BICEPS BUT DOESN'T STILL SEEM TO BE RE-ATTACHED. This episode: NONE. Dizziness: INTERMITTENT VERTIGO - NOT A NEW PROBLEM. Tinnitis: NO. Nausea: NO. Shortness of Breath: NO. Difficulty Swollowing: NO. Gait: NORMAL. Accidents: NO. Unexplained weight loss: NO. Imaging: RECENT NECK X-RAY SHOWING A LOT OF ARTHRITIS PER PATIENT REPORT. EXAMINATION/TECHNIQUE: X-RAY - XR Spine Cervical 4 or 5 Views. COMPARISON: None. . FINDINGS: Normal lordotic curvature. Normal alignment. There is no fracture or. focal osseous lesion. C5-6 and C6-7 degenerative disc and endplate changes with mild. uncovertebral joint arthropathy, right greater than left and mild facet. arthropathy bilaterally. There appears to be minimal right neural. foraminal narrowing from uncovertebral joint arthropathy at C6-7 on the. right. No prevertebral soft tissue swelling. Lung apices included in. [id number] are normal. RAD/Cerv Spine 4 or 5 Views. IMPRESSION: Degenerative changes as above. . No malalignment, fracture or focal osseous lesion. . Electronically Signed: Wilbur Samuel DO. at 23:33 EDT. PMH/Recent major surgery: GERD. LUMBAR FUSION ABOUT 10 YEARS AGO, PARTIAL KNEE REPLACEMENT RIGHT KNEE ABOUT 3 YEARS AGO. R SHLD SURGERY LAST YEAR. OTHER: RIDES STATIONARY BIKE AND PLAYS A LOT GOLF. LACROSS REF A COUPLE DAYS A WEEK. - Objective Sitting Posture/Standing Posture: FAIR. MILD FORWARD HEAD AND RS'S. Other Observations: INDEP GAIT AND TRANSFERS. Motor deficit: RUBI UE'S 5/5. DIRECTOR OF MARKETING AND PROMOTIONS STRENGTH: 100 LBS RUBI. Sensory deficit: RUBI UE LIGHT TOUCH SENSATION APPEARS INTACT AND SYMMETRICAL. ROM deficit: RUBI UE'S WFL. Dural Signs: POSITIVE RIGHT UE. Cervical Mvmt Loss: Flex: NIL. Pro: NIL. Ext: MOD. Ret: AARON - PROVOKES RIGHT UE TINGLING. RSB: MIN - PROVOKES RIGHT UE SX'S. LSB: MOD. R Rot: NIL. L Rot: NIL. Postural strength: FAIR. TREATMENT: NEUROMUSCULAR REEDUCATION - RETRAINING OF MVMT AND POSTURE FOR SITTING, LYING AND STANDING ACTIVITIES. INSTRUCTED IN PROPER WORK STATION SET UP FOR WORK. - Balance/Special Test Scores Oswestry Neck Score: 5 - Goals Goal 1:: DECREASE C/O RIGHT UE PAIN, NUMBNESS AND TINGLING. Goal Time Frame: 4-6 Weeks Goal 2:: IMPROVE PERSONAL CARE, SLEEP, WORK AND RECREATIONAL FUNCTION. Goal Time Frame: 4-6 Weeks Goal 3:: INSTRUCT IN PROPHYLAXIS Goal Time Frame: 4-6 Weeks - Anticipated Interventions Patient/Client Instruction: Educate patient on: Condition, Plan of Care, Risk Factors For the Purpose of:: To improve self management Therapeutic Exercise to Include: Strength training, Body mechanics, Postural training, Flexibilty training, Neuromotor development, In an aquatic setting, Dynamic Lumbar Stabilization For the Purpose of:: To decrease pain, To improve muscle performance and motor function, To increase tolerance to activity/condition/position, To improve ability of physical actions for home/community/work/leisure Thank you for the opportunity to evaluate your patient. For Medicare and Medicare HMO plans, please review the plan of care and approve it. It will need to be FAXED BACK to us at [phone] for Medicare purposes. For Medicare only, by signing this I certify the plan of care. Please let me know if there are questions or concerns regarding this plan of care. Physician Signature: Date:
--- NOTE | 2021-08-19 09:12 | HP.PTDCSUM ---
It has been my pleasure to treat KEKE TRIPLETT referred by Dr. Matheus Hawkins MD, with the diagnosis of NECK ARTHRITIS AND RIGHT UE RADICULOPATHY for a total of 16 visit(s). Discharge Date: Please see the following information for a summary of their discharge status. Subjective: PATIENT REPORTS MUCH LESS INTENSE RIGHT UE SXS' STATES HE CAN FEEL IT COMING ON AND KNOWS WHAT BRINGS IT ON SO HE AVOIDS THOSE THINGS. LEAVING TO ON A SNOW SKIING TRIP TODAY. STILL GETTING DAILY BUT BRIEF EPISODES OR RIGHT UE SX'S. PURCHASED HOME TRACTION UNIT. Right upper arm Pain Intensity (Out of 10): Unrated % Improvement: 80 Objective/Function: PATIENT WAS SEEN TODAY FOR RE-ASSESSMENT OF PROGRESS TOWARD THE SET PT GOALS AND THE NEED FOR FURTHER PHYSICAL THERAPY VS READINESS FOR DISCHARGE. ALL GOALS MET UPON EXAM TODAY RUBI UE ROM AND STRENGTH IS WFL. PATIENT NOW ALSO HAS CERVICAL ROM WFL ALL PLANES. PATIENT DID NOT HAVE ANY C/O NECK OR RIGHT UE SX'S DURING NECK TESTING TODAY BUT AFTER UE ROM AND STRENGTH TESTING PATIENT STARTED TO HAVE RIGHT UE MILD TINGLING. PATIENT IS APPROPRIATE TO BE DISCHARGED TO HOME TX AND HEP AT THIS TIME AND HE IS AGREEABLE. THIS PT RECOMMENS PHYSICIAN FOLLOW UP IF SX'S STOP IMPROVING OR HAVE NOT COMPLETELY RESOLVED WITHIN A MONTH. PATIENT AGREEABLE. Goal 1:: DECREASE C/O RIGHT UE PAIN, NUMBNESS AND TINGLING. Goal Progress: Goal Met Goal 2:: IMPROVE PERSONAL CARE, SLEEP, WORK AND RECREATIONAL FUNCTION. Goal Progress: Goal Met Goal 3:: INSTRUCT IN PROPHYLAXIS Goal Progress: Goal Met Plan: D/C. PATIENT AGREEABLE. If there are questions or concerns regarding this patient's physical therapy, please feel free to call me at [phone]. Thank you for the referral of this patient. Sincerely, Eliana Armstrong, PT, Cert MDT Balance/Gait/Functional tests - Balance/Special Test Scores Oswestry Neck Score: 4
== END 2021-08-19 10:09 | disposition home or self-care (01) ==
LOC: PT 08:00
PROVIDERS: PCP Family Medicine; Referring Provider Family Medicine; Visit Provider Family Medicine
DX: M47.22 Other spondylosis with radiculopathy, cervical region (principal)
CPT/HCPCS: 97012; 97035; 97110; 97112; 97162; 97164; 97530

== ENCOUNTER 2021-08-29 13:02 | Outpatient (CLI) | payer MEDICARE, SELFPAY ==
[2021-08-29 13:11] VITALS: BP 115/73; PULSE 66; RESP 16; TEMP 36.8; O2SAT 96; BMI 27.1
[2021-08-29] MEDS: 0.9% Saline Lock 10 ML Syringe IV (13:14)
[2021-08-29 13:48] VITALS: BP 106/70; PULSE 61; RESP 16; TEMP 37; O2SAT 94
[2021-08-29 14:38] VITALS: BP 106/61; PULSE 65; RESP 14; TEMP 36.7; O2SAT 98
== END 2021-08-29 14:46 | disposition home or self-care (01) ==
LOC: MS3OUT 13:05 → MS3 13:06
PROVIDERS: PCP Family Medicine; Referring Provider Nurse Practitioner Adult Health; Visit Provider Nurse Practitioner Adult Health
DX: Z23 Encounter for immunization (principal); U07.1 COVID-19
CPT/HCPCS: J7050; M0245; Q0245; A4216

== ENCOUNTER 2022-01-28 10:30 | Outpatient (RCR) | payer MEDICARE, OTHER, SELFPAY ==
--- NOTE | 2021-11-10 12:11 | HP.PTEVAL ---
Patient's Visit Information KEKE TRIPLETT is a 66 year old M referred to Physical Therapy by HEATH Merritt with a diagnosis of L knee OA. Date of Evaluation: 11/02/21 Physical Therapist: Sherman Canales DPT - Visit Plan Frequency: 2x /Week Duration: 4 Weeks Plan: Start with RLE strengthening throughout. Focus on hip ER/IR, HS, glutes and quad strengthening in non painful movements. 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 - Subjective Pt. is here today for his initial evaluation with diagnosis of L knee OA. Pt. has medial compartment pain with a large exacerbation the previous weekend after referring multiple lacrosse games. He did have it drained, removing multiple cc of fluid and having starting meloxicam, both have improved his symptoms. He denies N/T in either LE. Pt. reports having significant symptom reduction from this. he does plan to continue with referring, but on a hard candy spinner load. 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 He reports increased pain with squatting, stairs and increased pain with running (especially with larger striding). He is hopeful to reduce symptoms in order to get back to all recreation activities without limitations. - Pain L knee Pain Intensity (Out of 10): 1 Pain Intensity Range: 0, 5 Comment: medial aspect - Objective POSTURE: Pt. has decent posture in stance. He does have increased L knee varus positioning in stance, indicative of reduce medial compartment space (as seen on xray). PALPATION: Pt. has mild tenderness at medial joint line, near meniscal region. No MCL pain, No medial HS pain noted. Edema is drastically down to basically none today. He most likely exacerbated a meniscal pathology resulting in increased symptoms, calmed with meds and draining of symptoms. NEURO: pt. has normal DTR and sensation of light and sharp touch of LEs. Pt. is able to rise on heels and toes without issues. ROM: R knee: 0-0-127deg mild increase in symptoms with over pressure into flexion and extension. Pt. has normal hip ROM, does have some tightness with HS bilaterally. MMT: RLE: ankle 5/5 throughout; knee ex: 5-/5 mild increase in worse, flexion 5-/5 NE; hip: flexion 5-/5, adb 4+/5, ext 4+/5. IR 4+/5, ER 4+/5. LLE 5/5 throughout. Core strength: fair+/. GAIT: pt. has normal gait pattern, marked genu varum of L knee noted. He does have increased pain with large stride steps, decreased with normal to slightly shortened steps. STAIRS: mild increase in symptoms with descending. - Special Tests L Knee Apley - Meniscus: Positive L Knee Disco Test - Meniscus: Positive L Knee Anterior Drawer - ACL: Negative L Knee Posterior Drawer - PCL: Negative L Knee Posterior Sag - PCL: Negative L Knee Valgus - MCL: Negative L Knee Varus - LCL: Negative L Knee Patellar Apprehension - PFS: Negative L Knee Patellar Grind - PFS: Negative - Balance/Special Test Scores Lower Extremity Functional Score: 69 - Goals Goal 1:: LTG: Pt. to be I with HEP for RLE strengthening. Goal Time Frame: 2-4 Weeks Goal 2:: LTG: Pt. to be instructed to running pattern with decreased stride length in order to increased overall tolerance. Goal Time Frame: 2-4 Weeks Goal 3:: LTG: pt. to have increased RLE strength to 5/5 throughout. 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 Goal Time Frame: 2-4 Weeks - Rehabilitation Potential Physical Therapy Diagnosis: Pt. has signs and symptoms consistent with L knee OA. Pt. has some marked weakness throughout his LLE and had increased edema and pain after increased recent running. Pt. may have an underlying meniscal issue, but due to this limited medial compartment space on his Xrays his OA is prominent. Pt. would benefit from PT to address his pain, increased RLE strength and progress back to all recreational activities as tolerated. Rehabilitation Potential: Excellent - Anticipated Interventions Patient/Client Instruction: Educate patient on: Condition, Plan of Care, Risk Factors, Benefits of Fitness Program For the Purpose of:: To facilitate caregiver knowledge, To improve self management, To prevent re-injury, To improve ability to perform tasks related to life management Therapeutic Exercise to Include: Strength training, Power training, Endurance training, Postural training, Flexibilty training, Gait and locomotor training, Passive ROM, Active ROM For the Purpose of:: To decrease pain, To decrease swelling/inflammation, To improve nutrient delivery to tissue, To improve muscle performance and motor function, To improve ability to perform ADL's, To increase tolerance to activity/condition/position, To improve gait and locomotor functions, To improve health of tissue, To decrease soft tissue restriction Cryotherapy (ice pack, ice massage): Yes For the Purpose of:: To decrease pain, To decrease swelling/inflammation, To increase ROM Thank you for the opportunity to evaluate your patient. For Medicare and Medicare HMO plans, please review the plan of care and approve it. It will need to be FAXED BACK to us at [phone] for Medicare purposes. For Medicare only, by signing this I certify the plan of care. Please let me know if there are questions or concerns regarding this plan of care. Physician Signature: Date:
--- NOTE | 2022-02-12 10:23 | HP.PT.NRP ---
KEKE TRIPLETT was seen in my office for initial evaluation on 11/02/21. The following Plan of Care was established for this patient: Initial Frequency: 2x /Week Initial Duration: 4 Weeks Patient/Client Instruction: Educate patient on: Condition, Plan of Care, Risk Factors, Benefits of Fitness Program For the Purpose of:: To facilitate caregiver knowledge, To improve self management, To prevent re-injury, To improve ability to perform tasks related to life management Therapeutic Exercise to Include: Strength training, Power training, Endurance training, Postural training, Flexibilty training, Gait and locomotor training, In an aquatic setting, Passive ROM, Active ROM For the Purpose of:: To decrease pain, To decrease swelling/inflammation, To improve nutrient delivery to tissue, To improve muscle performance and motor function, To improve ability to perform ADL's, To increase tolerance to activity/condition/position, To improve gait and locomotor functions, To improve health of tissue, To decrease soft tissue restriction Cryotherapy (ice pack, ice massage): Yes For the Purpose of:: To decrease pain, To decrease swelling/inflammation, To increase ROM This patient was last seen in our office 01/28/22. Pertinent comments regarding their Physical therapy will appear below: Pt. to be Dc from this episode of care. He is to have surgery, partial knee replacement next week. Dc back to physician at this point in time. At this point I will be discontinuing this patient from physical therapy. I would be happy to see this patient again in the future if found appropriate by the physician. Thank you! Sherman Canales, DPT Balance/Gait/Functional tests - Balance/Special Test Scores Lower Extremity Functional Score: 41
== END 2022-01-28 19:00 | disposition home or self-care (01) ==
LOC: PT 10:30
PROVIDERS: PCP Family Medicine; Referring Provider Physician Assistant; Visit Provider Physician Assistant
DX: M17.12 Unilateral primary osteoarthritis, left knee (principal)
CPT/HCPCS: 97016; 97110; 97113; 97161

== ENCOUNTER 2022-03-17 13:00 | Outpatient (RCR) | payer MEDICARE, OTHER, SELFPAY ==
--- NOTE | 2022-02-11 08:27 | HP.PTEVAL_ITS ---
Patient's Visit Information KEKE TRIPLETT is a 66 year old M referred to Physical Therapy by HEATH Merritt with a diagnosis of L partial knee arthroplasty. Date of Evaluation: 02/11/22 Physical Therapist: Sherman Canales DPT - Visit Plan Frequency: 3x /Week Duration: 4 Weeks Plan: Start with L knee ROM progression as tolerated. Use of vaso and ice for edema control. Add in quad/HS activation and gait progress. As pain reduces instruct in walking program and progressive strengthening as tolerated. - Subjective Pt. is here today for his initial evaluation with diagnosis of L unicompartment knee arthroplasty. DOS: 02/01/22. Pt. arrives using FWW with proper use. He reports increased pain today, mostly like block has worn off. He is taking medications as prescribed, using compression device for DVT prophylaxis, icing frequently and attempting to ext/flex knee as tolerated. 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 He would like to get back to running as tolerated and back to all of the above activities without limitations. He denies calf pain, no double vision, no fever, no STOUT. He still has bandage in take, to remove this date. Pt. to follow up with physician in 6 weeks. - Pain L knee Pain Intensity (Out of 10): 6 Pain Intensity Range: 3, 9 - Objective POSTURE: Pt. had increased wt. shift to R side. Pt. lacks TKE of L knee during stance. PALPATION: Negative homans sign, marked swelling, but overall pliable isolated to knee. Minimal edema in distal LE. Soreness to quad and HS throughout. Bandage removed, overall good healing, incision is glued. No signs of infection noted. Minimal redness noted. Warm to touch, but as expected. NEURO: normal sensation to BLEs. Normal Achilles DTR bilaterally. ROM: L knee: 0-8-88deg. taken actively, pain limiting further motion, no block noted. Normal hip ROM bilaterally. Tight HS noted bilaterally. MMT: RLE: ankle 5/5 throughout; knee: ext 48#, flexion 32#; hip flexion 31#, abd 33#, ext 28#. LLE: ankle 5/5 throughout; knee: ext 5#, flexion 4#. Hip: flexion 0#, abd 4#, ext 5#. GAIT: Pt. ambulates with FWW with minimal knee flexion during swing phase, he lack TKE during stance phase on LLE. Pt. reports increased pain during stance phase as well. Slight improvement with VCing. TUsec with FWW. STAIRS: step to pattern with use of BHR, loading RLE only. - Balance/Special Test Scores Lower Extremity Functional Score: 30 TUG Test Time Seconds: 23 - Goals Goal 1:: LTG: Pt. to be I with HEP for LE ROM and strengthening. Goal Time Frame: 4-6 Weeks Goal 2:: STG: pt. to have increased AROM of L knee to 0-0-120deg allowing for increased tolerance to all gait and functional mobility. Goal Time Frame: 2-4 Weeks Goal 3:: STG: Pt. to sleep throughout the night with 0-2/10 pain in L knee allowing for increased quality of life. Goal Time Frame: 2 Weeks Goal 4:: LTG: pt. to ambulate unlimited distances with normal L knee gait pattern and 0-1/10 pain without use of AD. Goal Time Frame: 4-6 Weeks Goal 5:: LTG: Pt. to complete TUG assessment with time less than 8 sec without use of AD indicating increased safety/stability with functional mobility. Goal Time Frame: 4-6 Weeks Goal 6:: LTG: pt. to have symmetrical strength of BLEs allowing increased ability to complete all work and recreational activities without limitations. Goal Time Frame: 4-6 Weeks - Rehabilitation Potential Physical Therapy Diagnosis: Pt. has signs and symptoms consistent with L partial knee arthroplasty. Pt. has marked hypomobility, weakness, increased pain, difficulty walking and increased edema. He would benefit from PT to address the above limitations progressing back to all previous activities without limitations. Rehabilitation Potential: Excellent - Anticipated Interventions Patient/Client Instruction: Educate patient on: Condition, Plan of Care, Risk Factors, Benefits of Fitness Program For the Purpose of:: To foster healthy habits, To improve decision making, To facilitate caregiver knowledge, To improve self management, To prevent re- injury, To improve ability to perform tasks related to life management Therapeutic Exercise to Include: Strength training, Power training, Endurance training, Coordination, Postural training, Flexibilty training, Gait and locomotor training, Passive ROM, Active ROM For the Purpose of:: To decrease pain, To decrease swelling/inflammation, To increase ROM, To improve nutrient delivery to tissue, To increase oxygenation perfusion, To improve muscle performance and motor function, To improve gait and locomotor functions, To improve health of tissue, To decrease soft tissue restriction, To increase flexibility/ROM, To improve endurance, To improve balance Manual Therapy Techniques to Include: Mobilization, Soft tissue mobilization For the Purpose of:: To decrease pain, To decrease swelling/inflammation, To increase ROM, To improve nutrient delivery to tissue Cryotherapy (ice pack, ice massage): Yes Vasopneumatic device: Yes For the Purpose of:: To decrease pain, To decrease swelling/inflammation, To increase ROM Thank you for the opportunity to evaluate your patient. For Medicare and Medicare HMO plans, please review the plan of care and approve it. It will need to be FAXED BACK to us at [phone] for Medicare purposes. For Medicare only, by signing this I certify the plan of care. Please let me know if there are questions or concerns regarding this plan of care. Physician Signature: Date:
== END 2022-03-17 19:00 | disposition home or self-care (01) ==
LOC: PT 13:00
PROVIDERS: PCP Family Medicine; Referring Provider Orthopaedic Surgery Adult Reconstructive Orthopaedic Surgery; Visit Provider Orthopaedic Surgery Adult Reconstructive Orthopaedic Surgery
DX: Z96.652 Presence of left artificial knee joint (principal)
CPT/HCPCS: 97016; 97110; 97161; 97164

== ENCOUNTER → 2022-06-08 | Outpatient (CLI) | payer MEDICARE, OTHER, SELFPAY ==
--- NOTE | 2022-06-08 10:31 | EKG12_ITS ---
Test Reason : PREOP Blood Pressure : / mmHG Vent. Rate : 062 BPM Atrial Rate : 062 BPM P-R Int : 142 ms QRS Dur : 086 ms QT Int : 420 ms P-R-T Axes : 045 000 022 degrees QTc Int : 426 ms Normal sinus rhythm Normal ECG Confirmed by STIVEN SOUSA, GIN ([id number]), market editor BRENDAN FENG ([id number]) on 06/09/2022 11:10:04 AM Referred By: Faisal Ngo Confirmed By:GIN SALEEM MD
[2022-06-08 10:44] LABS: Hematocrit 45.9 % (40-54); Hemoglobin 15.4 g/dL (13.0-16.5); Mean Corp Hgb Conc 33.6 g/dL (32-36); Mean Corpuscular Volume 92.4 fL (80-94); Mean Platelet Vol. 8.8 fl (6.2-12.0); Platelet Count 295 K/mm3 (150-450); RBC Distribution Width CV 12.9 % (11.6-14.6); RBC Distribution Width SD 43.5 fl (35.1-43.9); Red Blood Count 4.97 M/mm3 (4.6-6.2); White Blood Count 5.4 K/mm3 (4.4-11.0)
[2022-06-08 11:08] LABS: Anion Gap 8 (5-15); BUN 16 mg/dL (7-18); BUN/Creat Ratio 16.1 RATIO (10-20); Chloride 105 mmol/L (98-107); Creatinine, Serum 0.99 mg/dL (0.70-1.30); EST Glomerular Filtration Rate 80 mL/min (>60); Est Glom Filt Rate - Afr Amer 97 mL/min (>60); Glucose 112 mg/dL (74-106); Potassium 4.1 mmol/L (3.5-5.1); Sodium Level 142 mmol/L (136-145)
== END | disposition home or self-care (01) ==
PROVIDERS: PCP Family Medicine; Referring Provider Otolaryngology; Visit Provider Otolaryngology
DX: Z01.818 Encounter for other preprocedural examination (principal)
CPT/HCPCS: 36415; 80048; 85027; 93005

== ENCOUNTER → 2023-08-22 | Outpatient (CLI) | payer MEDICARE, OTHER, SELFPAY ==
--- NOTE | 2023-08-22 10:08 | RAD_ITS ---
STUDY: X-RAY - RIGHT ANKLE REASON FOR EXAM: Male, 68 years old. Right ankle pain following injury. Lateral swelling. TECHNIQUE: 3 view(s) of the ankle. COMPARISON: Comparison is made with prior study dated 2019. FINDINGS: Normal visualized distal tibia and fibula. Old avulsion fracture of the lateral malleolus. Normal tibiotalar articulation and ankle mortise. Normal visualized talus and calcaneus. The visualized subtalar, talonavicular, calcaneocuboid and tarsal articulations are normal. Soft tissue swelling overlying the lateral malleolus. RAD/Ankle min 3 Views IMPRESSION: Soft tissue swelling overlying the lateral malleolus. Old avulsion fracture of the lateral malleolus. Electronically Signed: Arya Jiang MD at 10:44 EST ,
--- NOTE | 2023-08-22 10:08 | RAD_ITS ---
STUDY: X-RAY - LUMBAR SPINE REASON FOR EXAM: Male, 68 years old. Back pain following a fall. TECHNIQUE: 2 view(s) of the lumbar spine were obtained. COMPARISON: None FINDINGS: Normal lumbar lordosis. There is no substantial scoliosis. There is a normal alignment of the vertebrae. There is multilevel endplate spondylosis of the lumbar vertebrae. There is multi-level degenerative disc disease with multi-level disc space narrowing. Prior disc placement at the L5-S1 level. Moderate amount of fecal material is seen in the colon. RAD/Lumbar Spine 2 or 3 Views IMPRESSION: Degenerative changes of the spine, as detailed above. Prior surgery with prosthetic disc at the L5-S1 level. Electronically Signed: Arya Jiang MD at 10:52 EST ,
== END | disposition home or self-care (01) ==
PROVIDERS: PCP Family Medicine; Referring Provider Physician Assistant; Visit Provider Physician Assistant
DX: M54.9 Dorsalgia, unspecified (principal); W19.XXXA Unspecified fall, initial encounter; M25.571 Pain in right ankle and joints of right foot
CPT/HCPCS: 72100; 73610

== ENCOUNTER → 2025-06-05 | Outpatient (CLI) | payer MEDICARE, OTHER, SELFPAY ==
[2025-06-05 12:34] LABS: Hematocrit 43.7 % (40-54); Hemoglobin 14.8 g/dL (13.0-16.5); Mean Corp Hgb Conc 33.9 g/dL (32-36); Mean Corpuscular Volume 90.7 fL (80-94); Mean Platelet Vol. 9.8 fl (6.2-12.0); Platelet Count 252 K/mm3 (150-450); RBC Distribution Width CV 12.9 % (11.6-14.6); RBC Distribution Width SD 42.6 fl (35.1-43.9); Red Blood Count 4.82 M/mm3 (4.6-6.2); White Blood Count 4.4 K/mm3 (4.4-11.0)
[2025-06-05 12:37] LABS: AST(SGOT) 18 U/L (<=37); Alanine Aminotransfer ALT/SGPT 23 U/L (<=46); Albumin, Serum 4.4 g/dL (3.4-4.8); Alkaline Phosphatase 39 U/L (40-129); Anion Gap 9 (5-15); BUN 18 mg/dL (4-19); BUN/Creat Ratio 17.7 RATIO (10-20); Calcium,Total 9.2 mg/dL (7.6-11.0); Carbon Dioxide 26.0 mmol/L (21.0-32.0); Chloride 105 mmol/L (98-108); Cholesterol 199 mg/dL (<=200); Globulin 2.6 g/dL (2.2-4.2); Glucose 116 mg/dL (70-99); Low Density Lipoprotein Calc. 124 mg/dL; Potassium 4.7 mmol/L (3.3-5.1); Triglycerides 110 mg/dL; Very Low Density Lipoprotein 22 mg/dL (5-40); cholesterol:hdl ratio screen 3.78
== END | disposition home or self-care (01) ==
LOC: MFPLAB 10:11
PROVIDERS: Visit Provider Family Medicine
DX: Z01.89 Encounter for other specified special examinations (principal); Z13.220 Encounter for screening for lipoid disorders
CPT/HCPCS: 36415; 80053; 80061; 85027